=== PATIENT | male | born 1980 | race Two or more races ===

== ENCOUNTER → 2017-06-30 | Outpatient (CLI) | payer OTHER ==
--- NOTE | 2017-06-30 15:28 | US ---
EXAMINATION TYPE: US soft tissue head/neck DATE OF EXAM: 06/30/2017 COMPARISON: NONE CLINICAL HISTORY: R22.1 Localized swelling, mass and lump, necknoted x 2 months after sore throat in May. At left upper neck are several lymph nodes with largest seen at palpable = 1.1 x 1.2 x 0.6cm. Right upper neck is compared and lymph node is also noted = 1.6 x 1.2 x 0.8cm. IMPRESSION: Nonenlarged bilateral cervical lymph nodes corresponding to the palpable abnormalities.
== END | disposition home or self-care (01) ==
LOC: RADUSWWP 14:48
PROVIDERS: ATTEND Internal Medicine
DX: R22.1 Localized swelling, mass and lump, neck (principal)
CPT/HCPCS: 76536